=== PATIENT | female | born 1960 | race Caucasian/White ===

== ENCOUNTER 2016-09-30 20:31 | Emergency (ER) | payer BC ==
[~2016-09-30 20:31] MED LIST: LANTUS100 UNITS/ SC; ZOFRAN ODT4 MG/UDTAB PO
[2016-09-30] MEDS ORDERED: LANTUS100 UNITS/ SC (21:00)
[2016-09-30] MEDS ORDERED: INVOKANA300 MG PO (21:01)
[2016-09-30] MEDS ORDERED: GLUCOPHAGE XR500 M1 PO (21:01)
[2016-09-30] MEDS ORDERED: PRINIVIL5 M1 PO (21:01)
[2016-09-30] MEDS ORDERED: IBUPROFEN600 M1 PO (22:04)
== END 2016-09-30 22:15 ==
LOC: EDMED 20:31
PROC: 2W3JX1Z Immobilization of Right Finger using Splint (ICD-10-PCS; principal; 2016-09-30)
DX: S63.650A Sprain of metacarpophalangeal joint of right index finger, initial encounter (principal); E11.9 Type 2 diabetes mellitus without complications; Z79.84 Long term (current) use of oral hypoglycemic drugs; Z79.899 Other long term (current) drug therapy; W19.XXXA Unspecified fall, initial encounter; Y92.019 Unspecified place in single-family (private) house as the place of occurrence of the external cause